=== PATIENT | male | born 1975 | race Caucasian/White ===

== ENCOUNTER 2025-02-09 08:05 | Outpatient (CLI) | payer OTHER, SELFPAY ==
--- OUTSIDE RECORDS SUMMARY | 2025-02-09 08:07 | XMS_ITS | Clinical Summary ---
Author Organization [facility] Address [address] [place] [id number] Phone [email or web address] Care Team Providers Care Farmworker Dairy Name Role Phone Jennifer Montenegro Primary Care Provider [phone] Allergies Active Allergy Reactions Criticality Noted Date Comments Varenicline Hives 04/17/2024 Medications aspirin 81 MG chewable tablet Chew 81 mg once daily as needed. 3 Active sildenafil (Viagra) 100 MG tabletIndications: Erectile dysfunction, unspecified erectile dysfunction type 1/2-1 po qd prn sexual activity 30 tablet 2 4 Active lisinopril (ZESTRIL) 20 MG tabletIndications: Essential hypertension Take 1 tablet (20 mg total) by mouth 1 (one) time each day. 90 tablet 4 04/17/20 25 Active meloxicam (MOBIC) 15 MG tabletIndications: Lumbar disc disease Take 1 tablet (15 mg total) by mouth 1 (one) time each day. 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 90 tablet 4 Active methocarbamol (ROBAXIN) 750 MG tabletIndications: Lumbar disc disease 1 tab every 6 hours prn muscle spasms 90 tablet 4 Active Active Problems Patient Care Coordination No te Formatting of this note migh t be different from the original. PCP Identified: Yes Date: 04/09/2024 Inquired about PCP attribution. Member has a primary care provider. Member declined to attribute to a clinic provider today and information reflects has been updated Problem Noted Date Diagnosed Date Essential hypertension 05/20/2022 Hyperglycemia 02/01/2019 Vitamin D deficiency 02/01/[address] of the chest 01/30/2019 Incidental lung nodule, greater than or equal to 8mm 01/30/2019 Overview (04/17/2024): CT 10/2018 ED (erectile dysfunction) 03/15/2016 Foot drop, right 02/10/2016 Lumbar disc disease 04/29/2011 Family history of ischemic heart disease 007 Overview (04/17/2024): father father Restless legs syndrome (RLS) 05/02/2007 Tobacco use disorder 05/02/2007 Esophageal reflux 11/17/2005 Immunizations Immunization Administration Dates Next Due Tdap (ADACEL BOOSTRIX) (CVX-115) 06/07/2017 Family History Medical History Relation Name Comments Heart attack Father Heart block Father Diabetes Mother No Known Problems Sister 1 No Known Problems Sister 2 Relation Name Status Comments Father Alive Mother Alive Sister 1 Alive Sister 2 Alive Social History Tobacco Use Types Packs/Day Years Used Date Smoking Tobacco: Every Day Cigarettes Smokeless Tobacco: Never Tobacco Cessation:Ready to Q uit: Not Asked; Counseling Given: Not Answered Alcohol Use Standard Drinks/Week Comments Yes 0 (1 standard drink = 0.6 oz pur e alcohol) 2 beers per day Alcohol Use Answer Date Recorded Alcohol Use Status Yes 04/17/2024 Financial Resource Strain Answer Date R ecorded In the past 12 months has th e electric, gas, oil, or water company threatened to shut off services in your home? No 04/17/2024 Do problems getting child ca re make it difficult for you to work or study? No 04/17/2024 Do you have a high school degree? No 04/17/2024 Do you have a job? Yes 04/17/2024 How often does this describe you? I don't have enough money to pay my bills. Rarely 04/17/2024 Depression Answer Date Recorded PHQ Total Score 4 04/17/2024 Stress Answer Date Recorded Stress in your Life Moderate 07/16/2024 Dealing with Stress Not at all effective 024 Physical Activity Answer Date Recorded How often do you engage in m oderate physical activity for 30 minutes or more? 4 to 6 days a week 04/17/2024 Vigorous Physical Activity 4 to 6 days a week Time Spent Sitting Less than 4 hours 04/17/2024 Food Insecurity Answer Date Recorded Within the past 12 months, y ou worried that your food would run out before you got money to buy more. Never true 04/17/2024 Within the past 12 months, t he food you bought just didn t last and you didn t have money to get more. Never true 04/17/2024 Transportation Needs Answer Date Record ed In the past 12 months, has l ack of transportation kept you from medical appointments, meetings, work, or from getting things needed for daily living? (check all that apply) No 2023 Housing Stability Answer Date Recorded Are you worried or concerned that in the next two months you may not have stable housing that you own, rent, or stay in as a part of a household? No 04/17/[address] you li ve. Do you have problems with any of the following? (check all that apply) Mold;Water leaks 03/26 Sex and Gender Information Value Date Recorded Sex Assigned at Male 04/03/2024 10:05 AM CDT Legal Sex Male 12:03 AM CDT Gender Identity Male 04/03/2024 10:05 AM CDT Sexual Orientation Not on file Last Filed Vital Signs Vital Sign Reading Time Taken Comments Blood Pressure 122/72 04/17/2024 6:59 AM EDT Pulse 78 04/17/2024 6:59 AM EDT Temperature 36.2 C (97.2 F) 04/17/2024 6:59 AM EDT Respiratory Rate - - Oxygen Saturation 98% 04/17/2024 6:59 AM EDT Inhaled Oxygen Concentration - - Weight 108 kg (238 lb) 04/17/2024 6:59 AM EDT Height 177.8 cm (5' 10 ) 04/17/2024 6:59 AM EDT Body Mass Index 34.15 04/17/2024 6:59 AM EDT Plan of Treatment Health Maintenance Due Date Last Done Comments Dental Cleaning/Exam 1976 Hepatitis B Immunization (1 of 3 - 19+ 3-dose series) 09/23/1995 Colorectal Cancer Screening 2006 Covid-19 Immunization (2 - 2 024-25 season) 2024 02/24/2021 Influenza Immunization (#1) 2025 Tetanus Diphtheria and Pertu ssis Immunization (2 - Td or Tdap) 06/07/2027 06/07/2017 HIB Immunization Aged Out No longer e ligible based on patient's age to complete this topic HPV Immunization Aged Out No longer e ligible based on patient's age to complete this topic Hepatitis A Immunization Aged Out No longer eligible based on patient's age to complete this topic Pneumococcal: Ped (0 to 5 Yr s) and At-Risk Member (6 to 64 Yrs) Aged Out No longer e ligible based on patient's age to complete this topic Polio Immunization Aged Out No longer eligible based on patient's age to complete this topic Insurance [place] [id number] MEDBEN NO COPAY NB Care Teams Farmworker Dairy Relationship Specialty Start Date End Date Jennifer Montenegro [address] [place] [phone] PCP - General Applications Processor 04/09/24
--- OUTSIDE RECORDS SUMMARY | 2025-02-09 08:07 | XMS_ITS | Clinical Summary ---
Author Organization [facility] Address [facility] [place] [address] Care Team Providers Care Porcelain Slusher Name Role Phone Jacqui Bartlett MD Primary Care Provider [phone] Source Comments This information has been disclosed to you from confidential records protectedfrom disclosure by state law. You shall make no further disclosure of thisinformation without the specific, written, and informed release of theindividual to whom it pertains, or as otherwise permitted by law. A generalauthorization for the release of medical or other information is not sufficientfor the purposes of therelease of HIV test results or diagnoses. [id number] Allergies No known active allergies Medications naproxen (NAPROSYN) 500 MG tablet Take 1 tablet (500 mg total) by mouth 2 times a day as needed (for pain). 20 tablet 0 09/09/2015 Active traMADol (ULTRAM) 50 mg tablet Take 1 tablet (50 mg total) by mouth every 6 hours as needed for Pain. 8 tablet 0 09/09/2015 Active Active Problems Problem Noted Date Diagnosed Date Tobacco use disorder 05/02/2007 Restless legs syndrome (RLS) 05/02/2007 Pain in joint, lower leg 05/02/2007 Family history of ischemic heart disease 007 Overview (11/12/2011): father Routine general medical exam ination at a health care facility 05/02/2007 Obesity 11/17/2005 Overview (04/24/2015): ICD-10 Transition Esophageal reflux 11/17/2005 Social History Tobacco Use Types Packs/Day Years Used Date Smoking Tobacco: Every Day Cigarettes Alcohol Use Standard Drinks/Week Comments Yes 0 (1 standard drink = 0.6 oz pur e alcohol) occasionally Sex and Gender Information Value Date Recorded Sex Assigned at Not on file Legal Sex Male 4:15 PM EST Gender Identity Not on file Sexual Orientation Not on file Last Filed Vital Signs Vital Sign Reading Time Taken Comments Blood Pressure 149/85 09/09/2015 4:24 PM EST Pulse 58 09/09/2015 4:24 PM EST Temperature 36.8 C (98.2 F) 09/09/2015 4:24 PM EST Respiratory Rate 15 09/09/2015 4:24 PM EST Oxygen Saturation 98% 09/09/2015 4:24 PM EST Inhaled Oxygen Concentration 98% 09/09/2015 4 :24 PM EST Weight - - Height - - Body Mass Index - - Plan of Treatment Not on file Insurance EXCHANGE Care Teams Porcelain Slusher Relationship Specialty Start Date End Date Jacqui Bartlett MD [facility] [place] [address] PCP - General 11/17/05
--- OUTSIDE RECORDS SUMMARY | 2025-02-09 08:08 | XMS_ITS | Clinical Summary ---
Author Organization [facility] Address [address] [place] [address] Phone Care Team Providers Care Rn Hematology Name Role Phone Unavailable Primary Care Provider Unavailabl e Allergies No known active allergies Medications sildenafiL, pulm.hypertension , (REVATIO) 20 mg Oral TabletIndications :Erectile dysfunction due to diseases classified elsewhere Take 1-3 tabs daily as needed to reach desired effect. 30 Tablet 3 2 Active amitriptyline (ELAVIL) 25 mg Oral TabletIndications :Lumbar disc disease Take 1 Tablet by mouth nightly. 30 Tablet 2 2 Active aspirin 81 mg Oral Tablet, ChewableIndicatio ns:Essential hypertension Take 1 Tablet by mouth daily. 30 Tablet 2 3 Active rosuvastatin (CRESTOR) 10 mg Oral Tablet Take 1 Tablet by mouth nightly. 30 Tablet 2 3 Active methocarbamoL (ROBAXIN) 500 mg Oral TabletIndications :Lumbar disc disease Take 1 Tablet by mouth 4 times daily as needed for Muscle spasms. Use cautiously. May cause drowsiness. 120 Tablet 2 3 Active meloxicam (MOBIC) 15 mg Oral TabletIndications :Lumbar disc disease Take 1 Tablet by mouth daily. 30 Tablet 2 3 Active lisinopriL-hydroc hlorothiazide (PRINZIDE;ZESTORE TIC) 10-12.5 mg Oral TabletIndications :Essential hypertension Take 1 Tablet by mouth daily. 30 Tablet 2 3 Active Active Problems Patient Care Coordination No te Formatting of this note migh t be different from the original. Pt Transferred [facility] to [facility] Paper Chart at [employer]: Box # [id number] Problem Noted Date Diagnosed Date Herniation of lumbar intervertebral disc 024 Lumbar spinal stenosis 06/19/2024 Essential hypertension 05/20/2022 Hyperglycemia 02/01/2019 Vitamin D deficiency 02/01/[address] of the chest 01/30/2019 Incidental lung nodule, greater than or equal to 8mm 01/30/2019 Overview (01/30/2019): CT 10/2018 Tobacco abuse 03/19/2016 ED (erectile dysfunction) 03/15/2016 Foot drop, right 02/10/2016 Lumbar disc disease 04/29/2011 Restless legs syndrome (RLS) 05/02/2007 Routine general medical exam ination at a health care facility 05/02/2007 Pain in joint, lower leg 05/02/2007 Family history of ischemic heart disease 007 Overview (05/20/2022): father Obesity 11/17/2005 Overview (05/20/2022): ICD-10 Transition Esophageal reflux 11/17/2005 Resolved Problems Problem Noted Date Diagnosed Date Resolved Date Chest pain 03/19/2016 01/30/2019 Immunizations Immunization Administration Dates Next Due Tdap 06/07/2017 Surgical History Surgery Date Site/Laterality Comments TONSILLECTOMY Medical History Medical History Date Comments Hypertension Family History Medical History Relation Name Comments Diverticulitis Father Heart Disease Father 5 bypass, [place] Heart Disease Mother stent LAD '16 Heart Disease Paternal Uncle 1 Heart Disease Paternal Uncle 2 Relation Name Status Comments Father Alive Mother Alive Paternal Uncle 1 Alive Paternal Uncle 2 Alive Sister 1 Alive Sister 2 Alive Social History Tobacco Use Types Packs/Day Years Used Date Smoking Tobacco: Every Day Cigarettes 1.5 30 Smokeless Tobacco: Never Tobacco Cessation:Ready to Q uit: No; Counseling Given: No Alcohol Use Standard Drinks/Week Comments Yes 10 (1 standard drink = 0.6 oz pu re alcohol) socially PHQ-2 Answer Date Recorded PHQ-2 Total Score 0 05/20/2022 Sexually Active Control Partners Comments Yes Female Sex and Gender Information Value Date Recorded Sex Assigned at Not on file Legal Sex Male 1:31 PM EDT Gender Identity Not on file Sexual Orientation Not on file Obstetrics History Last Filed Vital Signs Vital Sign Reading Time Taken Comments Blood Pressure 153/96 04/28/2023 4:55 PM EDT Pulse 75 04/28/2023 4:53 PM EDT Temperature 36.7 C (98.1 F) 04/28/2023 4:53 PM EDT Respiratory Rate 18 04/28/2023 4:53 PM EDT Oxygen Saturation 97% 04/28/2023 4:53 PM EDT Inhaled Oxygen Concentration - - Weight 102.5 kg (226 lb) 04/28/2023 4:53 PM EDT Height 177.8 cm (5' 10 ) 05/20/2022 2:53 PM EDT Body Mass Index 32.43 05/20/2022 2:53 PM EDT Plan of Treatment Health Maintenance Due Date Last Done Comments Hepatitis B Vaccine (1 of 3 - 19+ 3-dose series) 09/23/1995 Pneumococcal Vaccine 0-49 (1 of 2 - PCV) 09/23/1995 Cologuard 2021 Colon Cancer Screening 2021 Colonoscopy 2021 FIT 2021 Sigmoidoscopy 2021 Virtual Colonography 2021 Annual Wellness Exam 05/20/2023 05/20/2022, 12/04/2015 (Declined) COVID-19 Vaccine (1 - 2023-2 5 season) 2024 Influenza Vaccine (#1) 2025 7 (Declined), 06/03/2016 (Declined) DTaP/TDaP/Td (2 - Td or Tdap) 06/07/2027 06/07/2017 Meningococcal B Vaccine Aged Out No l onger eligible based on patient's age to complete this topic Goals Goal Patient Goal Type Associated Problems Recent Progress Patient-Stated? Author Blood Pressure < 140/90 Blood Pressure 153/96(2022 4:55 PM EDT) No Jennifer Montenegro APRN Maintain a healthy diet, exercise regularly and maintain an ideal body weight General No Leticia Cortes LPN Stay Tobacco Free Lifestyle No Leticia Cortes LPN Insurance [employer]
[2025-02-09 08:29] LABS: Hematocrit 45.8 % (42.0-52.0); Hemoglobin 16.4 g/dL (14.1-18.0); Immature Granulocytes % 0.1 %; Mean Corpuscular HGB Conc 35.8 g/dL (31.8-35.4); Mean Corpuscular Hemoglobin 35.4 pg (27.0-31.2); Mean Corpuscular Volume 98.9 fl (80-94); Nucleated Red Blood Cells % 0 %; Platelet Count 207 K/mm3 (142-424); Red Blood Count 4.63 M/mm3 (4.60-6.20); Red Cell Distribution Width-SD 41.4 fL; White Blood Count 7.6 K/mm3 (4.8-10.8)
[2025-02-09 09:05] LABS: Alanine Aminotransferase 79 U/L (12-78); Albumin Level 4.5 g/dl (3.5-5.0); Albumin/Globulin Ratio 2.0 (1.1-1.8); Alkaline Phosphatase 106 U/L (38-126); Anion Gap 13.5 mEq/L (5-15); Aspartate Amino Transferase 84 U/L (17-59); Bilirubin,Total 0.6 mg/dl (0.2-1.3); Blood Urea Nitrogen 15 mg/dl (9-20); Calcium 10.1 mg/dl (8.4-10.2); Carbon Dioxide 24 mmol/L (22.0-30.0); Chloride 105 mmol/L (98-107); Cholesterol 181 mg/dl (140-200); Creatinine,Serum 0.90 mg/dl (0.66-1.25); Estimated Glomerular Filt Rate 90 ml/min (>60); GFR (African American) 109 ML/MIN (>60); Globulin 2.3 g/dL (1.3-3.2); Glucose 118 mg/dl (74-100); HDL Cholesterol 54 mg/dl (40-60); Potassium 4.5 mmoL/L (3.5-5.1); Sodium 138 mmol/L (136-145); Total Protein,Serum 6.8 g/dl (6.3-8.2); Triglycerides 135 mg/dl (30-150)
[2025-02-09 09:23] LABS: 25-OH Vitamin D, Total 34.5 ng/mL (30-100)
[2025-02-09 09:36] LABS: Thyroid Stimulating Hormone 1.44 uIU/mL (0.465-4.68)
[2025-02-09 09:41] LABS: Hemoglobin A1C 6.6 % (4.0-6.0)
[2025-02-09 09:55] LABS: Vitamin B12 530 pg/mL (239-931)
[2025-02-09 10:18] LABS: Hepatitis C Ab Qual. W/ RFX NEGATIVE (Negative)
[2025-02-10 12:16] LABS: Hepatitis B Surface Antigen Negative (Negative)
== END 2025-02-09 23:59 | disposition home or self-care (01) ==
LOC: LAB 08:06
PROVIDERS: PCP Nurse Practitioner; Visit Provider Nurse Practitioner
DX: E78.5 Hyperlipidemia, unspecified (principal); I10 Essential (primary) hypertension; E55.9 Vitamin D deficiency, unspecified; Z86.39 Personal history of other endocrine, nutritional and metabolic disease; Z11.59 Encounter for screening for other viral diseases
CPT/HCPCS: 36415; 80053; 80061; 80074; 82306; 82607; 83036; 84443; 85025; 87340; 87389